=== PATIENT | male | born 1940 | race Caucasian/White ===

== ENCOUNTER 2018-09-08 21:35 | Inpatient (IN) ==
[2018-09-08] MEDS ORDERED: 0.9 % Sodium Chloride 1,000 ML IVC ONE (21:49)
--- NOTE | 2018-09-08 21:52 | Emergency Department Note ---
Disposition Clinical Impression: LOBO (acute kidney injury), Near syncope Disposition: Admitted As Inpatient Condition: Fair Time of Disposition: 23:41 General Adult HPI - General Chief complaint: ED General Medical Stated complaint: Low Bp Time Seen by Provider: 09/08/18 21:47 Source: patient, family, EMS Mode of arrival: EMS Limitations: no limitations Nursing Notes Reviewed: Yes Vital Signs Reviewed: Yes - History of Present Illness HPI Narrative: 78-year-old male with a history of hypertension past since for evaluation of low blood pressure. Patient since he EMS. EMS as well as vancomycin history. States the family was eating dinner DNR prior to arrival. States patient did slump over at the dinner table and was not responding but did not lose consciousness. Patient's family states is usually very talkative and was not as talkative. Family states that he is very diaphoretic. Patient denies specific prodromal chest pain or shortness of breath. Patient denies any fevers but they state that he feels cold on arrival to the ED. Patient states he is active earlier today. Patient's family friend at the house checked the blood pressure was noted be 68 systolic. Upon recheck the patient's blood pressure was 90/60 per EMS. Patient states that they took him off his blood pressure medication 2- 3 months ago and has not been taking anything. No abdominal pain. No nausea vomiting. No blood in the stool or dark tarry stools. Pain Scale: 0 - Related Data Home Medications Medication Instructions Recorded Confirmed Acyclovir [Zovirax] 400 mg PO BID 03/11/17 03/11/17 Alendronate Sodium 70 mg PO SA 03/11/17 03/11/17 Amlodipine Besylate/Benazepril 1 each PO DAILY 03/11/17 03/11/17 [Lotrel 10-20 mg Capsule] Bupropion HCl [Wellbutrin Xl] 300 mg PO DAILY 03/11/17 03/11/17 Citalopram Hydrobromide 40 mg PO DAILY 03/11/17 03/11/17 [Citalopram HBr] Donepezil [Aricept] 10 mg PO HS 03/11/17 03/11/17 HYDROcodone/Acet 5/325 mg [[place] 1 tab PO 5XD PRN 03/11/17 03/11/17 5-325 mg] Tamsulosin [Flomax] 0.4 mg PO DAILY 03/11/17 03/11/17 Testosterone Cypionate 50 mg IM QMONTH 03/11/17 03/11/17 [Depo-Testosterone] Tizanidine HCl 4 mg PO BID PRN 03/11/17 03/11/17 hydroCHLOROthiazide 12.5 mg PO DAILY 03/11/17 03/11/17 [Hydrochlorothiazide] predniSONE [PredniSONE] 3 mg PO QPM 03/11/17 03/11/17 Allergies Allergy/AdvReac Type Severity Reaction Status Date / Time [id number] Reductase Allergy See Verified 09/27/16 07:17 Inhibitor Comments [Statins] All systems ED: reviewed and negative except as stated. Constitutional: Denies: fever Cardiovascular: Denies: chest pain Respiratory: Denies: cough, dyspnea Gastrointestinal: Denies: abdominal pain, nausea, vomiting Past Medical History - Past Medical History Source: patient Medical history: Reports: arthritis, hypertension Surgical history: Reports: orthopedic, other, sinus surgery Psychiatric history: Reports: no psych history - Social History Smoking Status: Never smoker Smokeless Tobacco Status: No Alcohol use: Reports: none Drug use: Reports: none Physical Exam - General Limitations: no limitations General appearance: alert, in no apparent distress - Head Head exam: atraumatic - Eye Eye exam: Present: normal appearance, PERRL, EOMI - ENT ENT exam: normal exam, normal oropharynx, mucous membranes moist - Neck Neck exam: Present: normal inspection - Chest Chest inspection: Present: normal inspection, symmetric chest wall rise - Respiratory Respiratory exam: Present: normal lung sounds bilaterally. Absent: respiratory distress - Cardiovascular Cardiovascular exam: Present: regular rate, normal rhythm - Abdominal Exam Abdominal exam: Present: soft, Non-Tender - Extremities Exam Extremities exam: Present: normal inspection. Absent: pedal edema - Back Exam Back exam: Present: normal inspection - Neurological Exam Neurological exam: Present: alert, oriented X3, CN II-XII intact. Absent: motor sensory deficit - Skin Skin exam: Present: warm, dry, intact, normal color Course Course Narrative: Patient seen and examined. Patient will get basic cardiopulmonary screening evaluation. Patient's neuro exam currently is nonfocal. Patient will be admitted for syncopal episode. - Reevaluation(s) Reevaluation #1: Patient seen and examined. Patient's resting comfortably. Patient's been hypertensive here in the ER. ED course discussed with the patient family. Given his prolonged. Abundant responsiveness and near-syncope the patient will be admitted for continued observation and evaluation. This information was discussed with the family at bedside. Time: 23:16 Vital Signs Temperature 97.8 F 09/08/18 21:41 Pulse Rate 62 09/08/18 21:41 Respiratory Rate 14 09/08/18 21:41 Blood Pressure 174/93 09/08/18 21:41 O2 Sat by Pulse Oximetry 98 09/08/18 21:41 Temperature 97.8 F 09/08/18 21:41 Pulse Rate 62 09/08/18 21:41 Respiratory Rate 14 09/08/18 21:41 Blood Pressure 174/93 09/08/18 21:41 O2 Sat by Pulse Oximetry 98 09/08/18 21:41 Oxygen Delivery Oxygen Delivery Room Air Medical Decision Making - MDM Narrative Medical decision making narrative: 78-year-old male persists for evaluation of a prolonged near syncope episode. Much of the history provided via the family who witnessed the episode. Stated to last proximally in our for calling EMS. Patient was diaphoretic. No known history of any cardiac disease. Patient's initial troponin EKG are unremarkable. Patient's been sinus bradycardia on the monitor and has been hypertensive. Patient's had several documented hypotensive episodes prehospital. Patient's alert and oriented. No concerns for any intercranial abnormality. Patient's I's reviewed and does show mild hypokalemia which was repleted. Patient does have mild AK I and was given IV fluids. At this point the patient would likely benefit from telemetry observation and continued monitoring as an inpatient. Did discuss with the hospitalists - Lab Data Lab results reviewed: Yes I reviewed the patient's lab results. Result diagrams: 09/08/18 22:11 09/08/18 22:11 Lab Results 09/08/18 09/08/18 09/08/18 Range/Units 22:11 22:11 22:11 WBC 6.3 (4.3-11.1) K/mcL RBC 3.95 L (4.19-5.50) M/mcL Hgb 13.0 (12.9-16.9) g/dL Hct 37.0 L (37.5-50.1) % MCV 93.7 (83.0-100.0) fL MCH 32.9 (28.0-33.3) pg MCHC 35.1 (31.6-35.5) g/dL RDW 13.4 (11.5-14.5) % Plt Count 139 L (140-400) K/mcL MPV 9.4 (9.4-12.4) fL Immature Gran % 0.3 (0-4) % Seg Neutrophils % 69.8 % Lymphocytes % 20.4 % Monocytes % 7.1 % Eosinophils % 2.1 % Basophils % 0.3 % Neutrophils # 4.4 (1.6-8.9) K/mcL Lymphocytes # 1.3 (0.6-4.6) K/mcL Monocytes # 0.5 (0.0-1.3) K/mcL Eosinophils # 0.1 (0.0-0.6) K/mcL Basophils # 0.0 (0.0-0.2) K/mcL Sodium 143 (136-145) mEq/L Potassium 3.1 L (3.5-5.1) mEq/L Chloride 104 (98-107) mEq/L Carbon Dioxide 28 (23-29) mEq/L BUN 31 H (8-23) mg/dL Creatinine 1.34 H (0.70-1.30) mg/dL Est GFR ( Amer) > 60 (> 60) Est GFR (Non-Af Amer) 52 L (> 60) BUN/Creatinine Ratio 23 (6-26) Glucose 103 (70-105) mg/dL Calculated Osmolality 303 H (280-300) Lactic Acid 2.0 (0.5-2.2) mmol/L Calcium 8.5 L (8.6-10.3) mg/dL Total Bilirubin (0.3-1.0) mg/dL Direct Bilirubin (0.0-0.2) mg/dL Indirect Bilirubin (0.0-1.2) mg/dL AST (13-39) Units/L ALT (7-52) Units/L Alkaline Phosphatase (34-104) Units/L Troponin I < 0.03 (< 0.04) ng/mL Serum Total Protein (6.4-8.9) g/dL Albumin (3.5-5.7) g/dL Globulin (2.4-3.5) g/dL Albumin/Globulin Ratio (1.1-2.2) // Range/Units 22:11 WBC (4.3-11.1) K/mcL RBC (4.19-5.50) M/mcL Hgb (12.9-16.9) g/dL Hct (37.5-50.1) % MCV (83.0-100.0) fL MCH (28.0-33.3) pg MCHC (31.6-35.5) g/dL RDW (11.5-14.5) % Plt Count (140-400) K/mcL MPV (9.4-12.4) fL Immature Gran % (0-4) % Seg Neutrophils % % Lymphocytes % % Monocytes % % Eosinophils % % Basophils % % Neutrophils # (1.6-8.9) K/mcL Lymphocytes # (0.6-4.6) K/mcL Monocytes # (0.0-1.3) K/mcL Eosinophils # (0.0-0.6) K/mcL Basophils # (0.0-0.2) K/mcL Sodium (136-145) mEq/L Potassium (3.5-5.1) mEq/L Chloride (98-107) mEq/L Carbon Dioxide (23-29) mEq/L BUN (8-23) mg/dL Creatinine (0.70-1.30) mg/dL Est GFR ( Amer) (> 60) Est GFR (Non-Af Amer) (> 60) BUN/Creatinine Ratio (6-26) Glucose (70-105) mg/dL Calculated Osmolality (280-300) Lactic Acid (0.5-2.2) mmol/L Calcium (8.6-10.3) mg/dL Total Bilirubin 0.6 (0.3-1.0) mg/dL Direct Bilirubin 0.2 (0.0-0.2) mg/dL Indirect Bilirubin 0.4 (0.0-1.2) mg/dL AST 22 (13-39) Units/L ALT 20 (7-52) Units/L Alkaline Phosphatase 43 (34-104) Units/L Troponin I (< 0.04) ng/mL Serum Total Protein 5.5 L (6.4-8.9) g/dL Albumin 3.7 (3.5-5.7) g/dL Globulin 1.8 L (2.4-3.5) g/dL Albumin/Globulin Ratio 2.1 (1.1-2.2) - Radiology Data Radiology results reviewed: Yes I reviewed the patient's radiology results. Chest X-Ray 09/08/18 21:48 IMPRESSION: No acute abnormality D/ / Naeem Camejo / Naeem Camejo Interpreting Provider: Naeem Camejo - EKG Data EKG #1 EKG attestation: Yes I reviewed and interpreted this EKG. EKG shows normal: sinus rhythm Rate: normal Rhythm: NSR Carmen/QRS: normal T wave inversions noted in: III, aVR, v1 Interpretation: no acute changes, nonspecific ST-T wave changes S.B.A.R. - S.B.A.R. Situation: Demographics Background: Presenting Complaint Assessment: Vital Signs, Course and respsone to treatment, Patient/Family Expectation Recommendation: Barrier(s) to disposition, Recommendation based on pending studies, treatments, or consults S.B.A.R. Report Given to: Dr. Cho SYvanBWaleska Repor Time: 23:35 Attestation Statement - Attestation Attestation: I, Jasiel Snowden MD, personally evaluated this patient and discussed their management with the resident physician. I reviewed the resident's note and agree with the documented findings, medical decision making, and plan of care. I personally supervised and was present for the guzman/critical portions of the following procedures completed by the resident: EKG interpretation. Patient is a 78-year-old male who presents to the emergency department with a complaint of a near-syncopal episode. Patient was having dinner at a neighbors house. Patient's and neighbor reports that the patient was quieter than usual and not talking much and then while sitting at the table he slumped over and would not respond to questions and would not talk. They checked his blood pressure and it was 66/40. He became very pale and clammy. They helped him to the couch. He seemed to feel little better after a few minutes they rechecked his blood pressure and systolic blood pressure was 90 however when they tried to sit him up it drops back down to 68. They report he was never unconscious but he would not answer questions or respond appropriately to them. There was no obvious focal neurological symptoms. No facial drooping or obvious weakness on either side. They just observed him for about an hour but he did not seem to be improving so they called EMS. EMS reports there initial blood pressure was in the range of 90/60 however in route to the hospital he improved significantly. His initial blood pressure here was actually hypertensive. Here in the department he is awake alert and oriented. reports that his color is markedly improved. Patient has no complaints. He states he felt fine earlier today. He denies any chest pain or shortness of breath. No palpitations. No abdominal pain. No nausea or vomiting. He has had no fever. No urinary symptoms. No GI bleed symptoms. No prior history of similar episodes. On examination patient is a well-developed well-nourished well-appearing elderly male in no acute distress. He is alert and oriented 3. There is no cyanosis or diaphoresis. Chest is nontender to palpation. Breath sounds are clear and equal bilaterally. Heart regular rate and rhythm. Abdomen soft and nontender with normal bowel sounds. No pedal edema. No gross focal neurological deficits. EKG shows a normal sinus rhythm with ventricular rate of 63. Nonspecific intraventricular conduction delay. No ST segment elevation or depression. No arrhythmia or ectopy. Chest x-ray negative. Labs reviewed and unremarkable other than a mild AKA with creatinine of 1.34. Troponin normal. CT of the head was ordered at the request of the admitting hospitalist and results are pending. The hospitalist, Dr. Cho, was consulted and accepted admission of the patient.
[2018-09-08 22:22] LABS: Basophils % 0.3 %; Eosinophils # 0.1 K/mcL (0.0-0.6); Eosinophils % 2.1 %; Immature Granulocytes % 0.3 % (0-4); Lymphocytes # 1.3 K/mcL (0.6-4.6); Lymphocytes % 20.4 %; Mean Corpuscular HGB Conc 35.1 g/dL (31.6-35.5); Mean Corpuscular Hemoglobin 32.9 pg (28.0-33.3); Mean Corpuscular Volume 93.7 fL (83.0-100.0); Mean Platelet Volume 9.4 fL (9.4-12.4); Monocytes # 0.5 K/mcL (0.0-1.3); Monocytes % 7.1 %; Neutrophils # 4.4 K/mcL (1.6-8.9); Platelet Count 139 K/mcL (140-400); Red Blood Count 3.95 M/mcL (4.19-5.50); Red Cell Distribution Width 13.4 % (11.5-14.5); Segmented Neutrophils % 69.8 %
[2018-09-08 22:42] LABS: Albumin 3.7 g/dL (3.5-5.7); Albumin/Globulin Ratio 2.1 (1.1-2.2); Bilirubin,Direct 0.2 mg/dL (0.0-0.2); Bilirubin,Indirect 0.4 mg/dL (0.0-1.2); Bilirubin,Total 0.6 mg/dL (0.3-1.0); Globulin 1.8 g/dL (2.4-3.5); Total Protein 5.5 g/dL (6.4-8.9)
[2018-09-08 22:43] LABS: BUN/Creatinine Ratio 23 (6-26); Blood Urea Nitrogen 31 mg/dL (8-23); Calcium 8.5 mg/dL (8.6-10.3); Carbon Dioxide 28 mEq/L (23-29); Chloride 104 mEq/L (98-107); Glucose 103 mg/dL (70-105); Osmolality,Calculated 303 (280-300); Potassium 3.1 mEq/L (3.5-5.1); Sodium 143 mEq/L (136-145); eGFR For Non-African Americans 52 (> 60)
[2018-09-08 22:45] LABS: Troponin I < 0.03 ng/mL (< 0.04)
--- NOTE | 2018-09-09 00:01 | Internal Med History&Physical ---
<Vahid Thurman - Last Filed: 09/09/18 04:26> Date of Encounter: 09/09/18 Time of Encounter: 00:01 Internal Medicine - H&P: HPI Chief complaint: Light-headed Admitted From: Emergency Dept Plans for Post Hospital Care: Home History of present illness: Mr. Soto is a 78 year old male with PMHx of HTN, BPH, polymyalgia rheumatica, arthritis, chronic neck and back pain presents with complaints of light-headedness. Patient was eating dinner at his neighbor's house earlier this evening and reports sudden feeling of light-headedness and he put his head on the table and stopped talking for a short period. Patient's family called EMS, and he was taken to the ED. Per notes, his blood pressure was initially 90s/60s, but increased en route to the hospital. Initial vitals in the ED were significant for hypertension of 714/93, but otherwise unremarkable. Labs showed mild thrombocytopenia of 139, hypokalemia of 3.1, and creatinine of 1.34. WBC, Hb, lactic acid, trop x1, LFTs were normal. CXR showed no acute abnormality. Head CT showed global atrophy and small vessel ischemic disease. EKG showed sinus rhythm, no acute ischemic changes, no conduction delay. Patient was given 1 liter normal saline for LOBO and 40 meq K PO for hypokalemia and admitted to hospitalist service. Patient was resting comfortably in bed upon my assessment. He did not have any complaints reports full resolution of his symptoms. He denies chest pain, palpitations, SOB, VIRAMONTES, light-headedness, fever, abdominal pain, nausea/vomiting, changes in bowel/bladder habits, blood in urine or stool. He was able to remember the entire event and denies syncope. The episode lasted about 45 minutes. He denies history of passing out or having seizures. He thinks all of his blood pressure medication was discontinued because his blood pressure was consistently low normal. Patient denies history of smoking and drug use. He dose drink 1-2 shots almost every evening to help him sleep. Past Med Surg Social Fam HX - Past Medical History Medical history: arthritis, hypertension Psychiatric history: no psych history - Past Surgical History Surgical History: orthopedic, other, sinus surgery Additional surgical history: retinal detachment. colonoscopy hemmoroidectomy. back surgery - tonsils/adnoids. cyst removed - Social History Smoking Status: Never smoker Smokeless Tobacco Status: No Alcohol use: none Drug use: none Internal Medicine - H&P: Meds Acyclovir [Zovirax] 400 mg PO BID 03/11/17 [History] Alendronate Sodium 70 mg PO SA 03/11/17 [History] Bupropion HCl [Wellbutrin Xl] 300 mg PO DAILY 03/11/17 [History] Citalopram Hydrobromide [Citalopram HBr] 40 mg PO DAILY 03/11/17 [History] Donepezil [Aricept] 10 mg PO HS 03/11/17 [History] Tamsulosin [Flomax] 0.4 mg PO DAILY 03/11/17 [History] Tizanidine HCl 4 mg PO BID PRN 03/11/17 [History] hydroCHLOROthiazide [Hydrochlorothiazide] 12.5 mg PO DAILY 03/11/17 [History] HYDROcodone/Acet 10/325 mg 1 tab PO Q6HR PRN 09/09/18 [History] Allergy/AdvReac Type Severity Reaction Status Date / Time [id number] Reductase Allergy See Verified 09/27/16 07:17 Inhibitor Comments [Statins] All Systems PM: A 10-system review of systems was performed and is negative for pertinent findings except as documented above in the HPI. - Constitutional Vitals: Temp Pulse Resp BP Pulse Ox 97.8 F 62 14 174/93 98 09/08/18 21:41 09/08/18 21:41 09/08/18 21:41 09/08/18 21:41 09/08/18 21:41 General appearance: Present: A&O X 3, pleasant, no acute distress Exam: Patient resting comfortably in bed in no acute distress. - Eye Eye exam: Present: EOMI, PERRL. Absent: conjunctival injection, scleral icterus Pupils: Present: normal accommodation - Expanded Neck Exam Neck exam: Absent: carotid bruit - Respiratory Respiratory exam: Present: CTAB - Cardiovascular Cardiovascular exam: Present: RRR - GI/Abdominal GI/Abdominal exam: Present: normal bowel sounds, soft, no peritoneal signs. Absent: distended, tenderness - Extremities Exam Extremities exam: Present: normal capillary refill, warm, radial pulses palpable and symmetrical. Absent: mottling, pedal edema, tenderness - Neurological Exam Neurological exam: Present: alert, CN II-XII intact, oriented X3, no focal de ficits, strengths equal and symetr throughout. Absent: pronater drift, facial droop, speech deficit - Expanded Neurological Exam Cerebellar function: finger to nose: Normal, heel to adams: Normal - Psychiatric Psychiatric exam: Present: normal affect, normal mood - Skin Skin exam: Present: dry, warm Internal Med - H&P Results - Labs CBC & Chem 7: 09/08/18 22:11 09/08/18 22:11 Labs: Short CBC 09/08/18 Range/Units 22:11 WBC 6.3 (4.3-11.1) K/mcL Hgb 13.0 (12.9-16.9) g/dL Hct 37.0 L (37.5-50.1) % Plt Count 139 L (140-400) K/mcL Neutrophils # 4.4 (1.6-8.9) K/mcL BMP 09/08/18 22:11 Sodium 143 Potassium 3.1 L Chloride 104 Carbon Dioxide 28 BUN 31 H Creatinine 1.34 H Glucose 103 Calcium 8.5 L Cardiac Enzymes 09/08/18 Range/Units 22:11 Troponin I < 0.03 (< 0.04) ng/mL Liver Function 09/08/18 Range/Units 22:11 Total Bilirubin 0.6 (0.3-1.0) mg/dL Direct Bilirubin 0.2 (0.0-0.2) mg/dL AST 22 (13-39) Units/L ALT 20 (7-52) Units/L Alkaline Phosphatase 43 (34-104) Units/L Albumin 3.7 (3.5-5.7) g/dL - Impressions ITS Impressions Chest X-Ray 09/08/18 21:48 IMPRESSION: No acute abnormality D/ / Naeem Camejo / Naeem Camejo Interpreting Provider: Naeem Camejo - Assessment and Plan (1) Near syncope Current Visit: Yes Status: Acute Assessment and plan: Patient with a near syncope episode earlier this evening He recalls the event, denies history of syncope or seizures Patient's BP was 90s/60s reported by EMS, but improved en route to [place] Initial BP here 174/93 Glucose 103 EKG sinus rhythm, no acute changes, no conduction delay Head CT showed no acute abnormalities Restarted home HCTZ Q2hr blood pressure checks Mg, CBC, BMP morning labs Echocardiogram Carotid duplex Monitor on telemetry (2) Thrombocytopenia Current Visit: Yes Status: Acute Assessment and plan: Platelets of 139, baseline around 180s Patient denies blood in urine/stool and easy bruising Just observe for now with repeat CBC in morning (3) LOBO (acute kidney injury) Current Visit: Yes Status: Acute Assessment and plan: Creatinine of 1.34 Patient given 1 liter normal saline in ED Repeat BMP in AM, consider more fluid hydration pending results (4) Hypokalemia Current Visit: Yes Status: Acute Assessment and plan: K 3.1 on arrival Given 40 meq PO in ED Repeat BMP in AM (5) Hypertension Current Visit: Yes Status: Chronic Assessment and plan: Patient's BP 174/93 on arrival Continue home HCTZ Q2 hour BP checks Qualifiers: Hypertension type: essential hypertension Qualified Code(s): I10 - Essential (primary) hypertension (6) BPH (benign prostatic hyperplasia) Current Visit: Yes Status: Acute Assessment and plan: Continue home medication Qualifiers: Lower urinary tract symptom presence: symptoms absent Qualified Code(s): N40.0 - Benign prostatic hyperplasia without lower urinary tract symptoms (7) Chronic back pain Current Visit: Yes Status: Acute Assessment and plan: Continued home norco PRN Qualifiers: Back pain location: low back pain Back pain laterality: midline Sciatica presence: unspecified whether sciatica present Qualified Code(s): M54.5 - Low back pain; G89.29 - Other chronic pain (8) DVT prophylaxis Current Visit: No Status: Acute Assessment and plan: Subcutaneous heparin - Time Spent With Patient Total time spent is greater than 50% in coordination of care (as documented) at patient's floor/unit and/or counseling patient: <CristinaSanchez - Last Filed: 09/09/18 05:25> Date of Encounter: 09/09/18 All Systems PM: A 10-system review of systems was performed and is negative for pertinent findings except as documented above in the HPI. - Constitutional Vitals: Temp Pulse Resp BP Pulse Ox 97.8 F 62 13 151/89 98 09/08/18 21:41 09/08/18 21:41 09/09/18 01:31 09/09/18 01:31 09/08/18 21:41 Internal Med - H&P Results - Labs CBC & Chem 7: 09/08/18 22:11 09/09/18 04:14 Labs: Short CBC 09/08/18 Range/Units 22:11 WBC 6.3 (4.3-11.1) K/mcL Hgb 13.0 (12.9-16.9) g/dL Hct 37.0 L (37.5-50.1) % Plt Count 139 L (140-400) K/mcL Neutrophils # 4.4 (1.6-8.9) K/mcL BMP 09/08/18 22:11 Sodium 143 Potassium 3.1 L Chloride 104 Carbon Dioxide 28 BUN 31 H Creatinine 1.34 H Glucose 103 Calcium 8.5 L Cardiac Enzymes 09/08/18 Range/Units 22:11 Troponin I < 0.03 (< 0.04) ng/mL Liver Function 09/08/18 Range/Units 22:11 Total Bilirubin 0.6 (0.3-1.0) mg/dL Direct Bilirubin 0.2 (0.0-0.2) mg/dL AST 22 (13-39) Units/L ALT 20 (7-52) Units/L Alkaline Phosphatase 43 (34-104) Units/L Albumin 3.7 (3.5-5.7) g/dL - Impressions ITS Impressions Chest X-Ray 09/08/18 21:48 IMPRESSION: No acute abnormality D/ / Naeem Camejo / Naeem Camejo Interpreting Provider: Naeem Camejo Head CT 09/08/18 23:34 IMPRESSION: Atrophy and small vessel ischemic disease. D/ / Zoran Roe MD / Zoran Roe MD Interpreting Provider: Zoran Roe MD - Time Spent With Patient Total time spent is greater than 50% in coordination of care (as documented) at patient's floor/unit and/or counseling patient: - Attending Attestation I performed a history and physical exam of the patient and discussed management with the resident. I reviewed the resident's note and agree with the documented findings and plan of care. Ezekiel Soto is a 78 year old man with hypertension who was brought in after a slumping over episode witnessed by family members and reportedly was hypotensive with systolic in the 60s, notably diaphoretic and cold. Upon EMS arrival his BP was 90/60. In the ER however he was found hypertensive. He offered no other complaints in the ER. Lab work r evealed a potassium of 3.1 and creatinine of 1.34 which is above his baseline. EKG as reviewed by me showed normal sinus rhythm. He is admitted for observation for presyncopal episode. Will get a head CT, monitor on telemetry, supplement K and check Mg, screening echo to assess for valvular disease. Family history reviewed and found non-contributory. RAHAT MILLS.
[2018-09-09] MEDS ORDERED: Ondansetron 4 MG/2 ML VIAL IVP PRN (01:13)
[2018-09-09] MEDS ORDERED: Naloxone 0.4 MG/ML INJ IVP PRN (01:13)
[2018-09-09] MEDS ORDERED: tiZANidine 4 MG TABLET PO PRN (02:29)
[2018-09-09] MEDS ORDERED: NON-FORMULARY MEDICATION 1 EACH EACH (Alendronate Sodium 70 MG) PO SCH (02:30)
[2018-09-09] MEDS: *HR* HYDROcodone/Acet 10/325 mg TABLET PO PRN ×3 (03:03→20:36)
[2018-09-09 05:13] LABS: Prothrombin Time 10.8 Seconds (9.4-12.1)
[2018-09-09 05:16] LABS: Activated Partial Thrombo Time 30.5 Seconds (26.0-36.0)
[2018-09-09 05:23] LABS: Alanine Aminotransferase 19 Units/L (7-52); Albumin 3.3 g/dL (3.5-5.7); Albumin/Globulin Ratio 1.9 (1.1-2.2); Alkaline Phosphatase 42 Units/L (34-104); Aspartate Amino Transferase 21 Units/L (13-39); BUN/Creatinine Ratio 27 (6-26); Bilirubin,Total 0.6 mg/dL (0.3-1.0); Blood Urea Nitrogen 27 mg/dL (8-23); Calcium 8.1 mg/dL (8.6-10.3); Carbon Dioxide 28 mEq/L (23-29); Chloride 108 mEq/L (98-107); Globulin 1.7 g/dL (2.4-3.5); Glucose 137 mg/dL (70-105); Osmolality,Calculated 303 (280-300); Potassium 3.2 mEq/L (3.5-5.1); Sodium 143 mEq/L (136-145); eGFR For Non-African Americans > 60 (> 60)
[2018-09-09] MEDS: *HR* Heparin 5,000 UNIT/ML VIAL SQ SCH ×2 (06:11→16:46)
[2018-09-09] MEDS ORDERED: Potassium Chloride Elixir 20 MEQ/15 ML UDC PO ONE (06:25)
[2018-09-09] MEDS: BuPROPion XL (24 HR) 150 MG TABLET PO SCH (08:37)
[2018-09-09] MEDS: hydroCHLOROthiazide 25 MG TABLET PO SCH (08:37)
[2018-09-09 08:51] LABS: Bilirubin,Urine Negative (Negative); Blood,Urine Negative (Negative); Clarity,Urine Clear (Clear); Color,Urine Yellow (Yellow); Glucose,Urine (UA) Normal (Normal); Ketones,Urine Negative (Negative); Leukocyte Esterase,Urine Negative (Negative); Nitrite,Urine Negative (Negative); Protein,Urine Negative (Neg-Trace); Specific Gravity,Urine 1.008 (1.010-1.025); Urobilinogen,Urine Normal (Normal)
--- NOTE | 2018-09-09 10:20 | Event Note ---
Date of Encounter: 09/09/18 Time of Encounter: 10:20 Patient was seen and examined hospitalist services earlier this morning currently denies any lightheadedness numbness tingling chest pain or shortness of breath. Lab work did show some hypokalemia this morning which was replaced awaiting further workup for near syncope. I did no on assessment patient did have a systolic murmur which he states he was not aware awaiting echo. Nursing staff reports patient did have elevated blood pressure systolic under 190 ordered hydralazine as needed and we will reevaluate and monitor.
--- NOTE | 2018-09-09 13:55 | Electrocardiograph Report ---
[place] [id number] Test Date: 2018-09-08 Pat Name: Ezekiel Soto Department: [id number] Room: 3B33 Gender: M Software Intern: : 1940 Requested By: Miky Dotson Order Number: [id number] Reading MD: Brady Blue Measurements Intervals [place] Rate: 63 P: 50 PA: 196 QRS: 66 QRSD: 127 T: 20 QT: 498 QTc: 510 Interpretive Statements Sinus rhythm Nonspecific intraventricular conduction delay Electronically Signed On 09-09-2018 13:53:29 EDT by Brady Blue
--- NOTE | 2018-09-09 19:25 | Event Note ---
Date of Encounter: 09/09/18 Time of Encounter: 19:21 Patient has had elevated BP today with systolic > 180 was given Hydralazine x2 as well as lisinopril Nursing reports differing BP in arms bilat -R 190 left 170 systolic - checked orthostaic bilaterally - WNL - will cont with lisionopril
[2018-09-09] MEDS ORDERED: *HR* LORazepam 2 MG/ML VIAL IVP PRN ×2 (21:27)
[2018-09-09] MEDS ORDERED: Acetaminophen 325 MG TABLET PO ONE (21:34)
[2018-09-09] MEDS ORDERED: Saline Nasal Spray 44 ML BOTTLE NS PRN (21:34)
[2018-09-09] MEDS: *HR* LORazepam 2 MG/ML VIAL IVP PRN (22:02)
[2018-09-09 23:05] LABS: Amylase 21 Units/L (29-103); Ethanol < 10 mg/dL (Less than 10); Lipase 17 Units/L (11-82)
[2018-09-10] MEDS: *HR* HYDROcodone/Acet 10/325 mg TABLET PO PRN ×3 (04:16→18:12)
[2018-09-10] MEDS: *HR* Heparin 5,000 UNIT/ML VIAL SQ SCH ×2 (05:45→17:26)
[2018-09-10] MEDS: *HR* LORazepam 2 MG/ML VIAL IVP PRN ×3 (05:45→21:41)
[2018-09-10] MEDS: BuPROPion XL (24 HR) 150 MG TABLET PO SCH (08:33)
[2018-09-10] MEDS: Vitamin B Complex/Vit C/Vit E 1 EACH TABLET PO SCH (08:33)
[2018-09-10] MEDS: Thiamine (B-1) 100 MG TABLET PO SCH (08:33)
[2018-09-10] MEDS: hydroCHLOROthiazide 25 MG TABLET PO SCH (08:34)
[2018-09-10] MEDS: Folic Acid 1 MG TABLET PO SCH (08:34)
--- NOTE | 2018-09-10 13:54 | Internal Med Progress Note ---
Hospitalist Progress Note - Encounter Date of Encounter: 09/10/18 Time of Encounter: 11:00 - Subjective Interval History: Patient was seen and examined at bedside. Patient states she does not feel well today he has noticeable tremors complains of nausea. Patient admitted to drinking approximately 4 shots of ROM a day with Vicodin tens. States he start ed drinking approximate 5 months ago to help him relax and sleep as well as control pain that he has been experiencing in his neck. He states his last drink was on Tuesday09/08/2018 In the evening prior to his syncopal episode-no tox screen was performed on initial presentation. Alcohol tox screen completed yesterday was less than 10. He has been followed as an outpatient by his PCP for what he describes as a"pinched nerve"in his neck. He denies any numbness or tingling in his extremities and is able to move his arms without difficulty. Discussed with the patient that this was not appropriate way to control pain as the patient would like to try to stop drinking which he stated "yes" we will monitor patient for detox prior to discharge. - Exam Vitals: Temp Pulse Resp BP Pulse Ox 97.5 F L 73 19 163/122 96 09/10/18 11:49 09/10/18 11:49 09/10/18 11:49 09/10/18 11:49 09/10/18 11:49 Exam: Skin: Free of rash and discoloration. Eyes: Sclera is white. There is no discharge from eyes. ENMT: Oral/pharyngeal mucosa is normal in appearance. There is no discharge from nose or ears. Respiratory: Normal breath sounds with no crackles and wheezes bilaterally. CV: Heart is regular with no gallop or murmur. GI: Abdomen is flat and soft with no palpable mass or visceromegaly. : There is no tenderness in patient's flanks bilaterally. Neuro exam: He has good strength in upper and lower extremities. He has normal eye movements. Psychiatric: He has normal affect. His thought process is appropriate to the situation. - Assessment and Plan (1) Near syncope Current Visit: Yes Status: Acute Assessment and Plan: Patient with a near syncope episode earlier this evening He recalls the event, denies history of syncope or seizures Patient's BP was 90s/60s reported by EMS, but improved en route to [place] Initial BP here 174/93 Glucose 103 EKG sinus rhythm, no acute changes, no conduction delay Head CT showed no acute abnormalities Restarted home HCTZ Q2hr blood pressure checks Mg, CBC, BMP morning labs Echocardiogram Carotid duplex Monitor on telemetry 09/10 Patient admits that he has been drinking approximately 4 shots of rum daily and taking his Vicodin while drinking. He has been doing this for approximately 5 months -to help him sleep as well as manage his pain-he is complaining of some neck pain-I suspect this is contributing to his syncopal episode Echocardiogram Impressions: LVEF 65-70%. Mild left ventricular diastolic dysfunction. Normal right ventricular structure and function. Mild aortic stenosis. Peak aortic velocity and mean gradient are 2.97m/s and 17 mmHg, respectively. No evidence of pulmonary hypertension. Carotid duplex-minimal nonstenotic plaque bilaterally Orthostatic vital signs within normal limits originally patient did have a discrepancy in blood pressure in arms bilaterally-he also has been experiencing elevated blood pressure most likely secondary to alcohol withdrawal Continue cardiac monitoring (2) LOBO (acute kidney injury) Current Visit: Yes Status: Acute Assessment and Plan: Creatinine of 1.34 Patient given 1 liter normal saline in ED Repeat BMP in AM, consider more fluid hydration pending results 09/10 Creatinine has returned to baseline We will continue to monitor closely (3) Hypokalemia Current Visit: Yes Status: Acute Assessment and Plan: Monitor and replace (4) Thrombocytopenia Current Visit: Yes Status: Acute Assessment and Plan: Platelets of 139, baseline around 180s Patient denies blood in urine/stool and easy bruising Just observe for now with repeat CBC in morning 09/10 This is returned to normal hepatic panel is within normal limits (5) Hypertension Current Visit: Yes Status: Chronic Assessment and Plan: Patient's BP 174/93 on arrival Continue home HCTZ Q2 hour BP checks 09/10 Most likely secondary to alcohol withdrawal we will continue to monitor. Patient states he has stopped taking his home antihypertensives a few months ago because his blood pressure was doing well Added lisinopril Hydralazine when necessary Controlled pain (6) DVT prophylaxis Current Visit: No Status: Chronic Assessment and Plan: Subcutaneous heparin (7) Alcohol withdrawal Current Visit: Yes Status: Acute Assessment and Plan: Patient states for the past 5 months he has been drinking 4 shots of rum along with his Vicodin daily to help control his pain and help him sleep. He presented [facility] ED after experiencing a near syncopal episode. He began to display alcohol withdrawal symptoms of tremors diaphoresis nausea elevated blood pressure. Patient would like to stop drinking and would like assistance with pain management. CIWAl has been initiated Seizure precautions-patient denies any past history of seizures. Patient states he has never drink like this before so he is never experienced alcohol withdrawal in the past (8) Chronic pain Current Visit: Yes Status: Acute Assessment and Plan: Patient states that he has been experiencing chronic pain in his neck and back. He has been seeing his primary care provider who has been treating him for a low pinched nerve" in his neck he has been taking Vicodin tens as well as drinking shots of rum to help control his pain. He has never seen orthopedist he has tried physical therapy however that has not helped him. He does experience some numbness in his left arm at times. He also experiences sharp pain so severe that he is unable to get out of bed. He is able to move his extremities without difficulty however his neck is tender to palpation. We will obtain MRI of neck Consult orthopedics as needed Consult pain management as needed Continue with Vicodin - Time Spent with Patient Total time spent is greater than 50% in coordination of care (as documented) at patient's floor/unit and/or counseling patient: Internal Medicine: Result - Labs CBC & Chem 7: 09/10/18 14:30 09/09/18 04:14 - ABG Interpretation ABG results: PT/INR, D-dimer PT 10.8 Seconds (9.4-12.1) 09/09/18 04:14 - Impressions Impressions Echocardiogram 09/09/18 01:15 Impressions: LVEF 65-70%. Mild left ventricular diastolic dysfunction. Normal right ventricular structure and function. Mild aortic stenosis. Peak aortic velocity and mean gradient are 2.97m/s and 17 mmHg, respectively. No evidence of pulmonary hypertension. Left Ventricular Wall Motion: Rest Echo Findings All wall segments showed normal motion. Findings: Study Quality * Technically sub-optimal due to poor echocardiographic windows. ECG Findings * Normal sinus rhythm. Left Ventricle * LVEF 65-70%. * Mild concentric left ventricular hypertrophy. * Mild left ventricular diastolic dysfunction. * Normal LV chamber size. Right Ventricle * Normal right ventricular structure and function. Left Atrium * Normal left atrial size. Right Atrium * Normal right atrial size. Aortic Valve * Aortic valve not well visualized. * Moderately sclerotic aortic valve leaflets. * Mild aortic stenosis.Peak aortic velocity and mean gradient are 2.97m/s and 17 mmHg, respectively. * * Trace aortic regurgitation. Mitral Valve * Normal mitral valve structure. * No mitral regurgitation. * No mitral stenosis. Tricuspid Valve * Normal tricuspid valve structure. * Trace tricuspid regurgitation. * No tricuspid stenosis. * No evidence of pulmonary hypertension. Pulmonic Valve * Pulmonic valve not well visualized. Aorta * Normally sized aortic root. Pericardium * The pericardium appears normal. IVC * Normal IVC dimensions and inspiratory collapse. Pulmonary Artery * Pulmonary artery not well visualized. Consult Discharge Plan - Plan Referrals: Mariano Vasquez DO [Primary Care Provider] - (5) Hypertension Qualifiers: Hypertension type: essential hypertension Qualified Code(s): I10 - Essential (primary) hypertension (7) Alcohol withdrawal Qualifiers: Complication of substance-induced condition: uncomplicated Qualified Code(s): F10.230 - Alcohol dependence with withdrawal, uncomplicated (8) Chronic pain Qualifiers: Chronic pain type: other chronic pain Qualified Code(s): G89.29 - Other chronic pain
[2018-09-10 14:45] LABS: Basophils % 0.1 %; Eosinophils % 0.1 %; Hematocrit 42.2 % (37.5-50.1); Immature Granulocytes % 0.3 % (0-4); Lymphocytes # 0.7 K/mcL (0.6-4.6); Mean Corpuscular HGB Conc 35.1 g/dL (31.6-35.5); Mean Corpuscular Hemoglobin 32.5 pg (28.0-33.3); Mean Corpuscular Volume 92.7 fL (83.0-100.0); Mean Platelet Volume 9.7 fL (9.4-12.4); Monocytes # 0.4 K/mcL (0.0-1.3); Monocytes % 4.8 %; Neutrophils # 6.2 K/mcL (1.6-8.9); Platelet Count 158 K/mcL (140-400); Red Blood Count 4.55 M/mcL (4.19-5.50); Red Cell Distribution Width 13.6 % (11.5-14.5); Segmented Neutrophils % 84.7 %
[2018-09-10 14:46] LABS: Hemoglobin 14.8 g/dL (12.9-16.9)
[2018-09-10] MEDS ORDERED: Acetaminophen 325 MG TABLET PO ONE (22:12)
--- NOTE | 2018-09-10 22:59 | Event Note ---
Date of Encounter: 09/10/18 Time of Encounter: 21:58 Alerted by pts. nurse NICOLAS Jj that the pt. was reporting a headache 12/26. Pt. had been admitted d/t syncope, bradycardia, and hypotension. I placed pt. on CIWA last night following a discussion we had regarding alcohol use. Pt. stated that he was feeling anxious and normally takes 40 mg of hydrocodone and 4 oz of 151 proof rum alcohol at night to relax and get a "buzz". [place] ordered Q6HR. Nurse reported giving the pt. Ativan per CIWA scale for a score of 10 d/t headache, tremors, and diaphoresis. Pt. told me the last drink he had was three hours prior to being brought to the ED. Tylenol 650 mg ordered for pts. headache. I will use opioids judiciously d/t pts. report of using them daily w/alcohol. Nurse instructed to continue monitoring the pt. very closely and alert me immediately of any adverse changes.
[2018-09-11] MEDS: *HR* HYDROcodone/Acet 10/325 mg TABLET PO PRN ×4 (00:09→22:34)
[2018-09-11 03:04] LABS: BUN/Creatinine Ratio 17 (6-26); Blood Urea Nitrogen 18 mg/dL (8-23); Calcium 9.1 mg/dL (8.6-10.3); Carbon Dioxide 28 mEq/L (23-29); Chloride 102 mEq/L (98-107); Glucose 102 mg/dL (70-105); Osmolality,Calculated 286 (280-300); Sodium 137 mEq/L (136-145); eGFR For Non-African Americans > 60 (> 60)
[2018-09-11] MEDS: *HR* Heparin 5,000 UNIT/ML VIAL SQ SCH ×2 (03:38→17:07)
[2018-09-11] MEDS: *HR* LORazepam 2 MG/ML VIAL IVP PRN (03:38)
[2018-09-11] MEDS ORDERED: Potassium Chloride 40 MEQ, Lidocaine 1% 2 ML in D5% in Water 500 ML IVPB ONE (08:00)
[2018-09-11] MEDS: Vitamin B Complex/Vit C/Vit E 1 EACH TABLET PO SCH (08:31)
[2018-09-11] MEDS: Thiamine (B-1) 100 MG TABLET PO SCH (08:31)
[2018-09-11] MEDS: BuPROPion XL (24 HR) 150 MG TABLET PO SCH (08:32)
[2018-09-11] MEDS: Folic Acid 1 MG TABLET PO SCH (08:32)
[2018-09-11] MEDS: hydroCHLOROthiazide 25 MG TABLET PO SCH (08:32)
--- NOTE | 2018-09-11 08:32 | Internal Med Progress Note ---
Hospitalist Progress Note - Encounter Date of Encounter: 09/11/18 Time of Encounter: 08:32 - Subjective Interval History: Patient was seen and examined at bedside. Patient states he feels better today no signs of alcohol withdrawal this time continue to monitor continue with CIWA - Exam Vitals: Temp Pulse Resp BP Pulse Ox 97.7 F 66 16 179/93 95 09/11/18 06:44 09/11/18 06:44 09/11/18 06:44 09/11/18 06:44 09/11/18 06:44 Exam: Skin: Free of rash and discoloration. Eyes: Sclera is white. There is no discharge from eyes. ENMT: Oral/pharyngeal mucosa is normal in appearance. There is no discharge from nose or ears. Respiratory: Normal breath sounds with no crackles and wheezes bilaterally. CV: Heart is regular with no gallop - systolic murmur GI: Abdomen is flat and soft with no palpable mass or visceromegaly. : There is no tenderness in patient's flanks bilaterally. Neuro exam: He has good strength in upper and lower extremities. He has normal eye movements. Psychiatric: He has normal affect. His thought process is appropriate to the ituation. - Assessment and Plan (1) Near syncope Current Visit: Yes Status: Acute Assessment and Plan: Patient with a near syncope episode earlier this evening He recalls the event, denies history of syncope or seizures Patient's BP was 90s/60s reported by EMS, but improved en route to [place] Initial BP here 174/93 Glucose 103 EKG sinus rhythm, no acute changes, no conduction delay Head CT showed no acute abnormalities Restarted home HCTZ Q2hr blood pressure checks Mg, CBC, BMP morning labs Echocardiogram Carotid duplex Monitor on telemetry 09/10 Patient admits that he has been drinking approximately 4 shots of rum daily and taking his Vicodin while drinking. He has been doing this for approximately 5 months -to help him sleep as well as manage his pain-he is complaining of some neck pain-I suspect this is contributing to his syncopal episode Echocardiogram Impressions: LVEF 65-70%. Mild left ventricular diastolic dysfunction. Normal right ventricular structure and function. Mild aortic stenosis. Peak aortic velocity and mean gradient are 2.97m/s and 17 mmHg, respectively. No evidence of pulmonary hypertension. Carotid duplex-minimal nonstenotic plaque bilaterally Orthostatic vital signs within normal limits originally patient did have a discrepancy in blood pressure in arms bilaterally-he also has been experiencing elevated blood pressure most likely secondary to alcohol withdrawal Continue cardiac monitoring 09/11 Patient had a near syncopal episode after consuming shots of 4 ounce 151 improved from and taking 40 mg of hydrocodone. Patient states he has been doing this for the past 5 months Echocardiogram Impressions: LVEF 65-70%. Mild left ventricular diastolic dysfunction. Normal right ventricular structure and function. Mild aortic stenosis. Peak aortic velocity and mean gradient are 2.97m/s and 17 mmHg, respectively. No evidence of pulmonary hypertension. Carotid duplex-minimal nonstenotic plaque bilaterally Orthostatic vital signs within normal limits originally patient did have a discrepancy in blood pressure in arms bilaterally-he also has been experiencing elevated blood pressure most likely secondary to alcohol withdrawal Continue cardiac monitorin (2) LOBO (acute kidney injury) Current Visit: Yes Status: Acute Assessment and Plan: Creatinine of 1.34 Patient given 1 liter normal saline in ED Repeat BMP in AM, consider more fluid hydration pending results 09/10 Creatinine has returned to baseline We will continue to monitor closely 09/11 stable (3) Hypokalemia Current Visit: Yes Status: Acute Assessment and Plan: Monitor and replace 3.0 today (4) Thrombocytopenia Current Visit: Yes Status: Acute Assessment and Plan: Platelets of 139, baseline around 180s Patient denies blood in urine/stool and easy bruising Just observe for now with repeat CBC in morning 09/10 This is returned to normal hepatic panel is within normal limits 09/11 resolved (5) Hypertension Current Visit: Yes Status: Chronic Assessment and Plan: Patient's BP 174/93 on arrival Continue home HCTZ Q2 hour BP checks 09/10 Most likely secondary to alcohol withdrawal we will continue to monitor. Patient states he has stopped taking his home antihypertensives a few months ago because his blood pressure was doing well Added lisinopril Hydralazine when necessary Controlled pain 09/11 improved Most likely secondary to alcohol withdrawal we will continue to monitor. Patient states he has stopped taking his home antihypertensives a few months ago because his blood pressure was doing well Added lisinopril Hydralazine when necessary Controlled pain (6) DVT prophylaxis Current Visit: No Status: Chronic Assessment and Plan: Subcutaneous heparin (7) Alcohol withdrawal Current Visit: Yes Status: Acute Assessment and Plan: Patient states for the past 5 months he has been drinking 4oz shots of rum along with his Vicodin daily to help control his pain and help him sleep. He presented [facility] ED after experiencing a near syncopal episode. He began to display alcohol withdrawal symptoms of tremors diaphoresis nausea elevated blood pressure. Patient would like to stop drinking and would like assistance with pain management. CIWAl has been initiated Seizure precautions-patient denies any past history of seizures. Patient states he has never drink like this before so he is never experienced alcohol withdrawal in the past -Patient states he feels well today no tremors noted blood pressure stable no nausea or diaphoresis. Continue with CIWA (8) Chronic pain Current Visit: Yes Status: Acute Assessment and Plan: Patient states that he has been experiencing chronic pain in his neck and back. He has been seeing his primary care provider who has been treating him for a low pinched nerve" in his neck he has been taking Vicodin tens as well as drinking shots of rum to help control his pain. He has never seen orthopedist he has tried physical therapy however that has not helped him. He does experience some numbness in his left arm at times. He also experiences sharp pain so severe that he is unable to get out of bed. He is able to move his extremities without difficulty however his neck is tender to palpation. We will obtain Cervical spine xray Consult orthopedics as needed Consult pain management as needed Continue with Vicodin as needed - Time Spent with Patient Total time spent is greater than 50% in coordination of care (as documented) at patient's floor/unit and/or counseling patient: Internal Medicine: Result - Labs CBC & Chem 7: 09/10/18 14:30 09/11/18 02:02 Labs: Short CBC 09/10/18 Range/Units 14:30 WBC 7.3 (4.3-11.1) K/mcL Hgb 14.8 D (12.9-16.9) g/dL Hct 42.2 (37.5-50.1) % Plt Count 158 (140-400) K/mcL Neutrophils # 6.2 (1.6-8.9) K/mcL BMP 09/11/18 02:02 Sodium 137 Potassium 3.0 L Chloride 102 Carbon Dioxide 28 BUN 18 Creatinine 1.04 Glucose 102 Calcium 9.1 - ABG Interpretation ABG results: PT/INR, D-dimer PT 10.8 Seconds (9.4-12.1) 09/09/18 04:14 Consult Discharge Plan - Plan Referrals: Marinao Vasquez DO [Primary Care Provider] - (Appointment has been requested.) (5) Hypertension Qualifiers: Hypertension type: essential hypertension Qualified Code(s): I10 - Essential (primary) hypertension (7) Alcohol withdrawal Qualifiers: Complication of substance-induced condition: uncomplicated Qualified Code(s): F10.230 - Alcohol dependence with withdrawal, uncomplicated (8) Chronic pain Qualifiers: Chronic pain type: other chronic pain Qualified Code(s): G89.29 - Other chronic pain
[2018-09-12] MEDS ORDERED: Acetaminophen 325 MG TABLET PO ONE (03:05)
[2018-09-12] MEDS: *HR* LORazepam 2 MG/ML VIAL IVP PRN ×2 (03:26→18:31)
[2018-09-12 03:38] LABS: Basophils % 0.1 %; Eosinophils # 0.1 K/mcL (0.0-0.6); Eosinophils % 1.6 %; Hematocrit 41.2 % (37.5-50.1); Hemoglobin 14.5 g/dL (12.9-16.9); Immature Granulocytes % 0.3 % (0-4); Lymphocytes # 1.4 K/mcL (0.6-4.6); Lymphocytes % 18.9 %; Mean Corpuscular HGB Conc 35.2 g/dL (31.6-35.5); Mean Corpuscular Volume 93.6 fL (83.0-100.0); Mean Platelet Volume 9.8 fL (9.4-12.4); Monocytes # 0.7 K/mcL (0.0-1.3); Monocytes % 9.4 %; Neutrophils # 5.2 K/mcL (1.6-8.9); Platelet Count 148 K/mcL (140-400); Red Cell Distribution Width 13.5 % (11.5-14.5); Segmented Neutrophils % 69.7 %
[2018-09-12 03:57] LABS: BUN/Creatinine Ratio 21 (6-26); Blood Urea Nitrogen 19 mg/dL (8-23); Calcium 9.4 mg/dL (8.6-10.3); Carbon Dioxide 27 mEq/L (23-29); Chloride 103 mEq/L (98-107); Glucose 103 mg/dL (70-105); Osmolality,Calculated 293 (280-300); Potassium 3.2 mEq/L (3.5-5.1); Sodium 140 mEq/L (136-145); eGFR For Non-African Americans > 60 (> 60)
[2018-09-12] MEDS: *HR* HYDROcodone/Acet 10/325 mg TABLET PO PRN ×3 (05:39→20:04)
[2018-09-12] MEDS: *HR* Heparin 5,000 UNIT/ML VIAL SQ SCH ×2 (05:40→17:08)
[2018-09-12] MEDS: Vitamin B Complex/Vit C/Vit E 1 EACH TABLET PO SCH (07:47)
[2018-09-12] MEDS: BuPROPion XL (24 HR) 150 MG TABLET PO SCH (07:47)
[2018-09-12] MEDS: Thiamine (B-1) 100 MG TABLET PO SCH (07:47)
[2018-09-12] MEDS: hydroCHLOROthiazide 25 MG TABLET PO SCH (07:47)
[2018-09-12] MEDS: Folic Acid 1 MG TABLET PO SCH (07:47)
--- NOTE | 2018-09-12 16:54 | Internal Med Progress Note ---
Hospitalist Progress Note - Encounter Date of Encounter: 09/12/18 Time of Encounter: 11:00 - Subjective Interval History: Patient was seen and examined at bedside currently patient is requesting to leave advised patient that we will obtain MRI very concerned about patient's syncope as well as numbness and tingling in his left arm. Agreed to MRI however he states he would like to have surgery at a different hospital if it is required. MRI has been ordered.-No signs of withdrawal at this time - Exam Vitals: Temp Pulse Resp BP Pulse Ox 98.0 F 67 16 178/102 92 09/12/18 16:00 09/12/18 16:00 09/12/18 16:00 09/12/18 16:00 09/12/18 16:00 Exam: Skin: Free of rash and discoloration. Eyes: Sclera is white. There is no discharge from eyes. ENMT: Oral/pharyngeal mucosa is normal in appearance. There is no discharge from nose or ears. Respiratory: Normal breath sounds with no crackles and wheezes bilaterally. CV: Heart is regular with no gallop - systolic murmur GI: Abdomen is flat and soft with no palpable mass or visceromegaly. : There is no tenderness in patient's flanks bilaterally. Neuro exam: He has good strength in upper and lower extremities. He has normal eye movements. Psychiatric: He has normal affect. His thought process is appropriate to the situation. - Assessment and Plan (1) Near syncope Current Visit: Yes Status: Acute Assessment and Plan: Patient with a near syncope episode earlier this evening He recalls the event, denies history of syncope or seizures Patient's BP was 90s/60s reported by EMS, but improved en route to [place] Initial BP here 174/93 Glucose 103 EKG sinus rhythm, no acute changes, no conduction delay Head CT showed no acute abnormalities Restarted home HCTZ Q2hr blood pressure checks Mg, CBC, BMP morning labs Echocardiogram Carotid duplex Monitor on telemetry 09/10 Patient admits that he has been drinking approximately 4 shots of rum daily and taking his Vicodin while drinking. He has been doing this for approximately 5 months -to help him sleep as well as manage his pain-he is complaining of some neck pain-I suspect this is contributing to his syncopal episode Echocardiogram Impressions: LVEF 65-70%. Mild left ventricular diastolic dysfunction. Normal right ventricular structure and function. Mild aortic stenosis. Peak aortic velocity and mean gradient are 2.97m/s and 17 mmHg, respectively. No evidence of pulmonary hypertension. Carotid duplex-minimal nonstenotic plaque bilaterally Orthostatic vital signs within normal limits originally patient did have a discrepancy in blood pressure in arms bilaterally-he also has been experiencing elevated blood pressure most likely secondary to alcohol withdrawal Continue cardiac monitoring 09/11 Patient had a near syncopal episode after consuming shots of 4 ounce 151 improved from and taking 40 mg of hydrocodone. Patient states he has been doing this for the past 5 months Echocardiogram Impressions: LVEF 65-70%. Mild left ventricular diastolic dysfunction. Normal right ventricular structure and function. Mild aortic stenosis. Peak aortic velocity and mean gradient are 2.97m/s and 17 mmHg, respectively. No evidence of pulmonary hypertension. Carotid duplex-minimal nonstenotic plaque bilaterally Orthostatic vital signs within normal limits originally patient did have a d iscrepancy in blood pressure in arms bilaterally-he also has been experiencing elevated blood pressure most likely secondary to alcohol withdrawal Continue cardiac monitorin 09/12 A couple workup has been completed-he has been self-medicating with alcohol and narcotics for neck pain. Currently on CIWA-no seizure activity noted MR cervical spine I was completed -degenerative thecal narrowing and neural foraminal stenosis severe narrowing of both neural foraminal and moderate to severe narrowing of the thecal sac and C5-C6 I did consult orthospine we will see patient in the a.m. (2) LOBO (acute kidney injury) Current Visit: Yes Status: Acute Assessment and Plan: Creatinine of 1.34 Patient given 1 liter normal saline in ED Repeat BMP in AM, consider more fluid hydration pending results 09/10 Creatinine has returned to baseline We will continue to monitor closely 09/11 stable 09/12 Stable (3) Hypokalemia Current Visit: Yes Status: Acute Assessment and Plan: Monitor and replace 3.0 today 09/12 Replace and monitor-potassium daily (4) Thrombocytopenia Current Visit: Yes Status: Resolved Assessment and Plan: Platelets of 139, baseline around 180s Patient denies blood in urine/stool and easy bruising Just observe for now with repeat CBC in morning 09/10 This is returned to normal hepatic panel is within normal limits 09/11 resolved (5) Hypertension Current Visit: Yes Status: Chronic Assessment and Plan: Patient's BP 174/93 on arrival Continue home HCTZ Q2 hour BP checks 09/10 Most likely secondary to alcohol withdrawal we will continue to monitor. Patient states he has stopped taking his home antihypertensives a few months ago because his blood pressure was doing well Added lisinopril Hydralazine when necessary Controlled pain 09/11 improved Most likely secondary to alcohol withdrawal we will continue to monitor. Patient states he has stopped taking his home antihypertensives a few months ago because his blood pressure was doing well Added lisinopril Hydralazine when necessary Controlled pain 09/12 This appears to be labile continue with lisinopril and hydralazine as needed (6) DVT prophylaxis Current Visit: No Status: Chronic Assessment and Plan: Subcutaneous heparin (7) Alcohol withdrawal Current Visit: Yes Status: Acute Assessment and Plan: Patient states for the past 5 months he has been drinking 4oz shots of rum along with his Vicodin daily to help control his pain and help him sleep. He presented [facility] ED after experiencing a near syncopal episode. He began to display alcohol withdrawal symptoms of tremors diaphoresis nausea elevated blood pressure. Patient would like to stop drinking and would like assistance with pain management. CIWAl has been initiated Seizure precautions-patient denies any past history of seizures. Patient states he has never drink like this before so he is never experienced alcohol withdrawal in the past -Patient states he feels well today no tremors noted blood pressure stable no nausea or diaphoresis. Continue with CIWA (8) Chronic pain Current Visit: Yes Status: Acute Assessment and Plan: Patient states that he has been experiencing chronic pain in his neck and back. He has been seeing his primary care provider who has been treating him for a low pinched nerve" in his neck he has been taking Vicodin tens as well as drinking shots of rum to help control his pain. He has never seen orthopedist he has tried physical therapy however that has not helped him. He does experience some numbness in his left arm at times. He also experiences sharp pain so severe that he is unable to get out of bed. He is able to move his extremities without difficulty however his neck is tender to palpation. Cervical MRI shows C5-C6: Disc osteophyte complex and facet hypertrophy resulting in severe narrowing of both neural foramen and moderate to severe narrowing of the thecal sac. Consult orthopedic spine Consult pain management as needed Continue with Vicodin as needed - Time Spent with Patient Total time spent is greater than 50% in coordination of care (as documented) at patient's floor/unit and/or counseling patient: Internal Medicine: Result - Labs CBC & Chem 7: 09/12/18 03:24 09/12/18 03:24 Labs: Short CBC 09/12/18 Range/Units 03:24 WBC 7.4 (4.3-11.1) K/mcL Hgb 14.5 (12.9-16.9) g/dL Hct 41.2 (37.5-50.1) % Plt Count 148 (140-400) K/mcL Neutrophils # 5.2 (1.6-8.9) K/mcL BMP 09/12/18 03:24 Sodium 140 Potassium 3.2 L Chloride 103 Carbon Dioxide 27 BUN 19 Creatinine 0.91 Glucose 103 Calcium 9.4 - ABG Interpretation ABG results: PT/INR, D-dimer PT 10.8 Seconds (9.4-12.1) 09/09/18 04:14 - Impressions Impressions Cervical Spine X-Ray 09/11/18 11:16 IMPRESSION: Disc space narrowing and osteophytes at C5-6 and C6-7. No acute finding by plain film imaging. D/ / 09/11/2018 15:44:33 Mile Baer MD / Berta Acosta Interpreting Provider: Mile Baer MD Cervical Spine MRI 09/12/18 11:50 IMPRESSION: Degenerative thecal sac narrowing and neural foraminal stenosis from C3-4 to C6-7. D/ / Rian Pagan MD / Rian Pagan MD Interpreting Provider: Rian Pagan MD Consult Discharge Plan - Plan Referrals: Mariano Vasquez DO [Primary Care Provider] - (Appointment has been requested.) (5) Hypertension Qualifiers: Hypertension type: essential hypertension Qualified Code(s): I10 - Essential (primary) hypertension (7) Alcohol withdrawal Qualifiers: Complication of substance-induced condition: uncomplicated Qualified Code(s): F10.230 - Alcohol dependence with withdrawal, uncomplicated (8) Chronic pain Qualifiers: Chronic pain type: other chronic pain Qualified Code(s): G89.29 - Other chronic pain
[2018-09-13] MEDS: *HR* Heparin 5,000 UNIT/ML VIAL SQ SCH (05:04)
[2018-09-13] MEDS: *HR* HYDROcodone/Acet 10/325 mg TABLET PO PRN ×2 (05:08→12:19)
[2018-09-13] MEDS: BuPROPion XL (24 HR) 150 MG TABLET PO SCH (08:34)
[2018-09-13] MEDS: Thiamine (B-1) 100 MG TABLET PO SCH (08:34)
[2018-09-13] MEDS: Folic Acid 1 MG TABLET PO SCH (08:34)
[2018-09-13] MEDS: Vitamin B Complex/Vit C/Vit E 1 EACH TABLET PO SCH (08:34)
[2018-09-13] MEDS: hydroCHLOROthiazide 25 MG TABLET PO SCH (08:34)
[2018-09-13] MEDS ORDERED: Acetaminophen 325 MG TABLET PO PRN (08:40)
--- NOTE | 2018-09-13 11:27 | Internal Med Progress Note ---
Hospitalist Progress Note - Encounter Date of Encounter: 09/13/18 Time of Encounter: 11:25 - Subjective Interval History: Patient seen and examined in the room. He had no episode of syncope overnight. Patient has no chest pain, shortness breath, or palpitation. He has no headache, numbness/tingling, or weakness. - Exam Vitals: Temp Pulse Resp BP Pulse Ox 98.4 F 74 14 190/118 93 09/13/18 11:11 09/13/18 11:11 09/13/18 11:11 09/13/18 11:11 09/13/18 11:11 Exam: Skin: Free of rash and discoloration. Eyes: Sclera is white. There is no discharge from eyes. ENMT: Oral/pharyngeal mucosa is normal in appearance. There is no discharge from nose or ears. Respiratory: Normal breath sounds with no crackles and wheezes bilaterally. CV: Heart is regular with no gallop - systolic murmur GI: Abdomen is flat and soft with no palpable mass or visceromegaly. : There is no tenderness in patient's flanks bilaterally. Neuro exam: He has good strength in upper and lower extremities. He has normal eye movements. Psychiatric: He has normal affect. His thought process is appropriate to the situation. - Assessment and Plan (1) Near syncope Current Visit: Yes Status: Acute Assessment and Plan: Patient with a near syncope episode earlier this evening He recalls the event, denies history of syncope or seizures Patient's BP was 90s/60s reported by EMS, but improved en route to [place] Initial BP here 174/93 Glucose 103 EKG sinus rhythm, no acute changes, no conduction delay Head CT showed no acute abnormalities Restarted home HCTZ Q2hr blood pressure checks Mg, CBC, BMP morning labs Echocardiogram Carotid duplex Monitor on telemetry 09/10 Patient admits that he has been drinking approximately 4 shots of rum daily and taking his Vicodin while drinking. He has been doing this for approximately 5 months -to help him sleep as well as manage his pain-he is complaining of some neck pain-I suspect this is contributing to his syncopal episode Echocardiogram Impressions: LVEF 65-70%. Mild left ventricular diastolic dysfunction. Normal right ventricular structure and function. Mild aortic stenosis. Peak aortic velocity and mean gradient are 2.97m/s and 17 mmHg, respectively. No evidence of pulmonary hypertension. Carotid duplex-minimal nonstenotic plaque bilaterally Orthostatic vital signs within normal limits originally patient did have a discrepancy in blood pressure in arms bilaterally-he also has been experiencing elevated blood pressure most likely secondary to alcohol withdrawal Continue cardiac monitoring 09/11 Patient had a near syncopal episode after consuming shots of 4 ounce 151 improved from and taking 40 mg of hydrocodone. Patient states he has been doing this for the past 5 months Echocardiogram Impressions: LVEF 65-70%. Mild left ventricular diastolic dysfunction. Normal right ventricular structure and function. Mild aortic stenosis. Peak aortic velocity and mean gradient are 2.97m/s and 17 mmHg, respectively. No evidence of pulmonary hypertension. Carotid duplex-minimal nonstenotic plaque bilaterally Orthostatic vital signs within normal limits originally patient did have a discrepancy in blood pressure in arms bilaterally-he also has been experiencing elevated blood pressure most likely secondary to alcohol withdrawal Continue cardiac monitorin 09/12 A couple workup has been completed-he has been self-medicating with alcohol and narcotics for neck pain. Currently on CIWA-no seizure activity noted MR cervical spine I was completed -degenerative thecal narrowing and neural foraminal stenosis severe narrowing of both neural foraminal and moderate to se kim narrowing of the thecal sac and C5-C6 I did consult orthospine we will see patient in the a.m. 09/13 awaiting for ortho consult. anticipate dc in am. (2) LOBO (acute kidney injury) Current Visit: Yes Status: Acute Assessment and Plan: Creatinine of 1.34 Patient given 1 liter normal saline in ED Repeat BMP in AM, consider more fluid hydration pending results 09/10 Creatinine has returned to baseline We will continue to monitor closely 09/11 stable 09/12 Stable (3) Hypertension Current Visit: Yes Status: Chronic Assessment and Plan: Patient's BP 174/93 on arrival Continue home HCTZ Q2 hour BP checks 09/10 Most likely secondary to alcohol withdrawal we will continue to monitor. Patien t states he has stopped taking his home antihypertensives a few months ago because his blood pressure was doing well Added lisinopril Hydralazine when necessary Controlled pain 09/11 improved Most likely secondary to alcohol withdrawal we will continue to monitor. Patient states he has stopped taking his home antihypertensives a few months ago because his blood pressure was doing well Added lisinopril Hydralazine when necessary Controlled pain 09/12 This appears to be labile continue with lisinopril and hydralazine as needed (4) Thrombocytopenia Current Visit: Yes Status: Resolved Assessment and Plan: Platelets of 139, baseline around 180s Patient denies blood in urine/stool and easy bruising Just observe for now with repeat CBC in morning 09/10 This is returned to normal hepatic panel is within normal limits 09/11 resolved (5) Hypokalemia Current Visit: Yes Status: Acute Assessment and Plan: Monitor and replace (6) Alcohol withdrawal Current Visit: Yes Status: Acute Assessment and Plan: Patient states for the past 5 months he has been drinking 4oz shots of rum along with his Vicodin daily to help control his pain and help him sleep. He presented [facility] ED after experiencing a near syncopal episode. He began to display alcohol withdrawal symptoms of tremors diaphoresis nausea elevated blood pressure. Patient would like to stop drinking and would like assistance with pain management. CIWAl has been initiated Seizure precautions-patient denies any past history of seizures. Patient states he has never drink like this before so he is never experienced alcohol withdrawal in the past -Patient states he feels well today no tremors noted blood pressure stable no nausea or diaphoresis. Continue with CIWA (7) Chronic pain Current Visit: Yes Status: Acute Assessment and Plan: Patient states that he has been experiencing chronic pain in his neck and back. He has been seeing his primary care provider who has been treating him for a low pinched nerve" in his neck he has been taking Vicodin tens as well as drinking shots of rum to help control his pain. He has never seen orthopedist he has tried physical therapy however that has not helped him. He does experience some numbness in his left arm at times. He also experiences sharp pain so severe that he is unable to get out of bed. He is able to move his extremities without difficulty however his neck is tender to palpation. Cervical MRI shows C5-C6: Disc osteophyte complex and facet hypertrophy resulting in severe narrowing of both neural foramen and moderate to severe narrowing of the thecal sac. Consult orthopedic spine Consult pain management as needed Continue with Vicodin as needed (8) DVT prophylaxis Current Visit: Yes Status: Chronic Assessment and Plan: Subcutaneous heparin - Time Spent with Patient Total time spent is greater than 50% in coordination of care (as documented) at patient's floor/unit and/or counseling patient: Greater than 35 minutes Plan of Care Discussed with: patient Internal Medicine: Result - Labs CBC & Chem 7: 09/12/18 03:24 09/12/18 03:24 - ABG Interpretation ABG results: PT/INR, D-dimer PT 10.8 Seconds (9.4-12.1) 09/09/18 04:14 - Impressions Impressions Cervical Spine X-Ray 09/11/18 11:16 IMPRESSION: Disc space narrowing and osteophytes at C5-6 and C6-7. No acute finding by plain film imaging. D/ / 09/11/2018 15:44:33 Mile Baer MD / Berta Acosta Interpreting Provider: Mile Baer MD Cervical Spine MRI 09/12/18 11:50 IMPRESSION: Degenerative thecal sac narrowing and neural foraminal stenosis from C3-4 to C6-7. D/ / Rian Pagan MD / Rian Pagan MD Interpreting Provider: Rian Pagan MD Consult Discharge Plan - Plan Referrals: Mariano Vasquez DO [Primary Care Provider] - 09/18/18 11:30 am (Appointment has been requested.) (3) Hypertension Qualifiers: Hypertension type: essential hypertension Qualified Code(s): I10 - Essential (primary) hypertension (6) Alcohol withdrawal Qualifiers: Complication of substance-induced condition: uncomplicated Qualified Code(s): F10.230 - Alcohol dependence with withdrawal, uncomplicated (7) Chronic pain Qualifiers: Chronic pain type: other chronic pain Qualified Code(s): G89.29 - Other chronic pain
[2018-09-13 13:11] VITALS: BP 172/94
--- NOTE | 2018-09-13 13:14 | Discharge Summary ---
- NOTES TO OUTPATIENT PROVIDER Notes to Outpatient Provider: f/u with pain management within 2 weeks,. F/u with Dr. Bell as scheduled. F/u with PCP within 2 weeks. Date of Encounter: 09/13/18 Time of Encounter: 13:06 - Discharge Diagnosis (1) Near syncope Priority: Primary Status: Acute (2) LOBO (acute kidney injury) Priority: Primary Status: Resolved (3) Hypertension Priority: Secondary Status: Chronic Qualifiers: Hypertension type: essential hypertension Qualified Code(s): I10 - Essential (primary) hypertension (4) Thrombocytopenia Priority: Secondary Status: Resolved (5) Hypokalemia Priority: Primary Status: Acute (6) Alcohol withdrawal Priority: Primary Status: Acute Qualifiers: Complication of substance-induced condition: uncomplicated Qualified Code(s): F10.230 - Alcohol dependence with withdrawal, uncomplicated (7) Chronic pain Priority: Primary Status: Acute Qualifiers: Chronic pain type: other chronic pain Qualified Code(s): G89.29 - Other chronic pain (8) DVT prophylaxis Priority: Primary Status: Chronic Hospital course: Mr. Soto is a 78 year old male with PMHx of HTN, BPH, polymyalgia rheumatica, arthritis, chronic neck and back pain presents with complaints of light-headedness. Patient was eating dinner at his neighbor's house earlier this evening and reports sudden feeling of light-headedness and he put his head on the table and stopped talking for a short period. Patient's family called EMS, and he was taken to the ED. Per notes, his blood pressure was initially 90s/60s, but increased en route to the hospital. Patient reported that patient has been taking narcotics with alcohol recently. he underwent extensive workup including EKG, carotid Doppler, and echocardiogram, which all were unremarkable. Cervical spine of MRI showed thecal sac narrowing and neural foraminal stenosis from C3-C7, also orthopedics was consulted, recommended outpatient follow-up. Patient blood pressure was significantly elevated while in the hospital, he reported he was placed on BP medications, however he has not taken them. His blood pressure medicine was resumed. On the discharge today, and patient is alert and oriented, his labs were unremarkable except mild hypokalemia. His blood pressure remains elevated. He was instructed to continue to check blood pressure at home and keep a diary, continue taking all the blood pressure medicine as prescribed, follow-up PCP within 1-2 weeks. He will also follow up with orthopedics and the pain management as outpatient. Discharge discussed with: patient, family Time spent discussing smoking cessation with patient: more than 10 minutes - Time Spent with Patient Total time spent providing and/or coordinating discharge services: Time spent: Greater than 30 minutes - Discharge Medications Prescriptions: New Folic Acid 1 mg PO DAILY #30 tablet Potassium Chloride 10 meq PO DAILY #30 tab.er.prt Vitamin B Complex/Vit C/Vit E [Stresstab] 1 each PO DAILY #30 tablet Thiamine (B-1) [Vitamin B-1] 100 mg PO DAILY #30 tablet Lisinopril [Zestril] 10 mg PO DAILY #30 tablet Continued Donepezil [Aricept] 10 mg PO HS Alendronate Sodium 70 mg PO SA Tizanidine HCl 4 mg PO BID PRN PRN Reason: Muscle Spasm Tamsulosin [Flomax] 0.4 mg PO DAILY Bupropion HCl [Wellbutrin Xl] 300 mg PO DAILY Acyclovir [Zovirax] 400 mg PO BID HYDROcodone/Acet 10/325 mg [Novi 10-325 mg] 1 tab PO Q6HR PRN PRN Reason: Pain Timolol Maleate 0.5% 1 drop BOTH EYES BID Dorzolamide HCl 1 drop BOTH EYES BID Memantine HCl [Memantine HCl ER] 21 mg PO DAILY Escitalopram [Lexapro] 20 mg PO DAILY Finasteride [Proscar] 5 mg PO DAILY hydroCHLOROthiazide [Hydrochlorothiazide] 12.5 mg PO DAILY #30 tablet Amlodipine Besylate/Benazepril [Lotrel 10-20 mg Capsule] 1 tab PO DAILY #30 capsule Home Medications: Acyclovir [Zovirax] 400 mg PO BID 03/11/17 [History] Alendronate Sodium 70 mg PO SA 03/11/17 [History] Bupropion HCl [Wellbutrin Xl] 300 mg PO DAILY 03/11/17 [History] Donepezil [Aricept] 10 mg PO HS 03/11/17 [History] Tamsulosin [Flomax] 0.4 mg PO DAILY 03/11/17 [History] Tizanidine HCl 4 mg PO BID PRN 03/11/17 [History] HYDROcodone/Acet 10/325 mg [Novi 10-325 mg] 1 tab PO Q6HR PRN 09/09/18 [History] Dorzolamide HCl 1 drop BOTH EYES BID 09/10/18 [History] Escitalopram [Lexapro] 20 mg PO DAILY 09/10/18 [History] Finasteride [Proscar] 5 mg PO DAILY 09/10/18 [History] Memantine HCl [Memantine HCl ER] 21 mg PO DAILY 09/10/18 [History] Timolol Maleate 0.5% 1 drop BOTH EYES BID 09/10/18 [History] Amlodipine Besylate/Benazepril [Lotrel 10-20 mg Capsule] 1 tab PO DAILY #30 capsule 09/13/18 [Rx] Folic Acid 1 mg PO DAILY #30 tablet 09/13/18 [Rx] Lisinopril [Zestril] 10 mg PO DAILY #30 tablet 09/13/18 [Rx] Potassium Chloride 10 meq PO DAILY #30 tab.er.prt 09/13/18 [Rx] Thiamine (B-1) [Vitamin B-1] 100 mg PO DAILY #30 tablet 09/13/18 [Rx] Vitamin B Complex/Vit C/Vit E [Stresstab] 1 each PO DAILY #30 tablet 09/13/18 [Rx] hydroCHLOROthiazide [Hydrochlorothiazide] 12.5 mg PO DAILY #30 tablet 09/13/18 [Rx] Allergies/Adverse Reactions: Allergy/AdvReac Type Severity Reaction Status Date / Time [id number] Reductase Allergy See Verified 09/27/16 07:17 Inhibitor Comments [Statins] Date of admission: 09/12/18 19:41 Primary care physician: Mariano Vasquez DO Consults: 09/09/18 21:30 Consult to [facility] [CONS] Routine Reason for SW Consult: Patient drinks 4 oz of 151 proof rum every night w/40 mg hydrocodone to help him sleep and get a "buzz". Pt. needs assessed for rehabilitation needs. 09/12/18 19:29 Consult to Orthopedic Surgery [CONS] Routine Consulting Provider: Naeem Zarate Jr Reason for Consult: c5-6 evere narrowing of both neural foramen and moderate to severe narrowing of the thecal sac. Time Notified: 19:31 Call Completed: Yes Anticipated date of discharge: 09/13/18 - Constitutional Vitals: Temp Pulse Resp BP Pulse Ox 98.4 F 74 14 175/104 93 09/13/18 11:11 09/13/18 11:11 09/13/18 11:11 09/13/18 12:32 09/13/18 11:11 General appearance: Present: A&O X 3, pleasant, no acute distress Exam: Skin: Free of rash and discoloration. Eyes: Sclera is white. There is no discharge from eyes. ENMT: Oral/pharyngeal mucosa is normal in appearance. There is no discharge from nose or ears. Respiratory: Normal breath sounds with no crackles and wheezes bilaterally. CV: Heart is regular with no gallop - systolic murmur GI: Abdomen is flat and soft with no palpable mass or visceromegaly. : There is no tenderness in patient's flanks bilaterally. Neuro exam: He has good strength in upper and lower extremities. He has normal eye movements. Psychiatric: He has normal affect. His thought process is appropriate to the situation. - Patient Status Disposition: Home, Self-Care Condition: Fair Functional capacity at discharge: independent ambulation Overall status at discharge: patient is progressing back to baseline - Discharge Instructions Follow Up With: Mariano Vasquez DO [Primary Care Provider] - 09/18/18 11:30 am (Appointment has been requested.) - Diet and Activity Activity: increase activity as tolerated Diet: low fat, low cholesterol, low salt diet
== END 2018-09-13 15:01 | disposition home or self-care (01) | DRG 312 ==
LOC: EMEROOARM 21:35 → 3BNU 21:35
PROVIDERS: ADMIT Internal Medicine; ATTEND Internal Medicine

== ENCOUNTER 2019-12-12 13:45 | Inpatient (IN) ==
[2019-12-12] MEDS ORDERED: *HR* PHENYLEPHRINE 1,000 MCG/10 ML SYRINGE IVP ONE ×4 (14:03→16:08)
[2019-12-12] MEDS ORDERED: Lidocaine -MPF 4% 5 ML AMPUL ONE (14:03)
[2019-12-12] MEDS ORDERED: Dexamethasone 4 MG/ML VIAL ONE (14:03)
[2019-12-12] MEDS ORDERED: *HR* Succinylcholine 200 MG/10 ML VIAL IVP ONE (14:03)
[2019-12-12] MEDS ORDERED: Ondansetron 4 MG/2 ML VIAL ONE (14:03)
[2019-12-12] MEDS ORDERED: Lidocaine -MPF 2% 2 ML VIAL ONE (14:03)
[2019-12-12] MEDS ORDERED: *HR* Propofol 200 MG/20 ML VIAL IVP ONE (14:03)
[2019-12-12] MEDS ORDERED: *HR* FentaNYL (PF) 100 MCG/2 ML VIAL ONE (14:03)
[2019-12-12] MEDS ORDERED: CeFAZolin Syr 2,000MG/20 ML 2,000 MG/20 ML SYRINGE IVPB ONE (14:04)
[2019-12-12] MEDS ORDERED: *HR* Labetalol 20 MG/4 ML SYRINGE IVP PRN (14:15)
[2019-12-12] MEDS ORDERED: *HR* HYDROmorphone (PF) 1 MG/ML SYRINGE IVP PRN (14:15)
[2019-12-12] MEDS ORDERED: *HR* Promethazine 25 MG/ML VIAL IVP PRN (14:15)
[2019-12-12] MEDS ORDERED: Ondansetron 4 MG/2 ML VIAL IVP PRN ×2 (14:15→17:33)
[2019-12-12] MEDS ORDERED: Celecoxib 200 MG CAPSULE PO ONE (14:25)
[2019-12-12] MEDS ORDERED: ROPIVACAINE/PF/NS 0.25% 1 EACH SYRINGE INTRAART ONE (14:40)
[2019-12-12] MEDS ORDERED: *HR* Midazolam HCl 2 MG/2 ML VIAL ONE (14:40)
[2019-12-12] MEDS ORDERED: Ropivacaine/PF 0.5% 30 ML VIAL ONE (14:40)
[2019-12-12] MEDS ORDERED: Ringers Solution, Lactated 1,000 ML IVC SCH ×2 (14:45→17:33)
[2019-12-12] MEDS ORDERED: EPHEDrine 50 MG/ML VIAL ONE (15:28)
[2019-12-12] MEDS ORDERED: Dextrose Gel 15 GM/37.5 ML TUBE PO PRN ×2 (17:33)
[2019-12-12] MEDS ORDERED: Naloxone 0.4 MG/ML INJ IVP PRN (17:33)
[2019-12-12] MEDS ORDERED: Sennosides 8.6 MG TABLET PO PRN (17:33)
[2019-12-12] MEDS ORDERED: D5% in Water 1,000 ML IVC PRN (17:33)
[2019-12-12] MEDS ORDERED: MOM Conc 10 ML UD.LIQ PO PRN (17:33)
[2019-12-12] MEDS ORDERED: *HR* Dextrose 50 % in Water (Vial) 50 ML VIAL IVP PRN (17:33)
[2019-12-12] MEDS: Insulin LISPRO 300 UNITS/3 ML VIAL SQ SCH (18:06)
[2019-12-12] MEDS: tiZANidine 4 MG TABLET PO SCH ×2 (18:06→23:36)
[2019-12-12] MEDS: CeFAZolin 2 GM/120 ML BAG IVPB SCH (18:38)
[2019-12-12 18:43] LABS: Hematocrit 40.7 % (37.5-50.1); Hemoglobin 14.3 g/dL (12.9-16.9)
[2019-12-12] MEDS: Acyclovir 200 MG CAPSULE PO SCH (19:53)
[2019-12-12] MEDS ORDERED: Insulin LISPRO 300 UNITS/3 ML VIAL SQ SCH (21:00)
[2019-12-12] MEDS: *HR* OxyCODONE Immed Rel 5 MG TABLET PO PRN (21:51)
[2019-12-13] MEDS: CeFAZolin 2 GM/120 ML BAG IVPB SCH
[2019-12-13] MEDS: *HR* OxyCODONE Immed Rel 5 MG TABLET PO PRN ×2 (02:13→10:04)
[2019-12-13] MEDS: *HR* OxyCODONE/APAP 5/325 TABLET PO PRN ×2 (05:02→13:41)
[2019-12-13 06:24] LABS: Hematocrit 35.4 % (37.5-50.1)
[2019-12-13 06:26] LABS: Hemoglobin 12.4 g/dL (12.9-16.9)
[2019-12-13] MEDS ORDERED: Ketorolac 15 MG/ML VIAL IVP ONE (06:29)
[2019-12-13 06:45] LABS: BUN/Creatinine Ratio 27 (6-26); Blood Urea Nitrogen 22 mg/dL (8-23); Calcium 8.8 mg/dL (8.6-10.3); Carbon Dioxide 25 mEq/L (23-29); Chloride 104 mEq/L (98-107); Glucose 144 mg/dL (70-105); Osmolality,Calculated 290 (280-300); Potassium 3.2 mEq/L (3.5-5.1); Sodium 137 mEq/L (136-145); eGFR For African Americans > 60 (> 60); eGFR For Non-African Americans > 60 (> 60)
[2019-12-13] MEDS ORDERED: lisinopriL 20 MG TABLET PO SCH (09:00)
[2019-12-13] MEDS ORDERED: Aspirin Enteric Coated 81 MG Tablet PO SCH ×2 (09:00)
[2019-12-13] MEDS ORDERED: NON-FORMULARY MEDICATION 1 EACH EACH (Amlodipine Besylate/Benazepril [Lotrel 10-20 Mg Caps PO SCH (09:00)
[2019-12-13] MEDS ORDERED: hydroCHLOROthiazide 25 MG TABLET PO SCH (09:00)
[2019-12-13] MEDS ORDERED: Finasteride 5 MG TABLET PO SCH (09:00)
[2019-12-13] MEDS ORDERED: BuPROPion XL (24 HR) 150 MG TABLET PO SCH (09:00)
[2019-12-13] MEDS ORDERED: amLODIPine 5 MG TABLET PO SCH (09:00)
[2019-12-13] MEDS: tiZANidine 4 MG TABLET PO SCH (10:04)
[2019-12-13] MEDS: Acyclovir 200 MG CAPSULE PO SCH (10:05)
[2019-12-13] MEDS: Insulin LISPRO 300 UNITS/3 ML VIAL SQ SCH ×2 (10:11→12:26)
[2019-12-13 12:24] VITALS: BP 112/75
== END 2019-12-13 13:15 | disposition home or self-care (01) | DRG 483 ==
LOC: SAMDAY 13:45 → 3NENU 17:33
PROVIDERS: ADMIT Orthopaedic Surgery; ATTEND Orthopaedic Surgery